=== PATIENT | male | born 1975 | race African-American/Black ===

== ENCOUNTER 2017-10-08 06:53 | Emergency (ER) | payer OTHER ==
[2017-10-08 07:06] VITALS: BMI 27.6
--- NOTE | 2017-10-08 07:54 | PDOC ---
History of Present Illness <Benoit Garcia - Last Filed: 10/08/17 10:34> - General History Source: Patient Exam Limitations: No Limitations - History of Present Illness Initial Comments: 10/08/17 08:21 The patient is a 42 year old male with a significant PMH of hypertension who presents to the emergency department complaining of lightheadedness, diffuse abdominal soreness, multiple episodes of emesis, and diarrhea since this morning. The patient states he began feeling a "knot in his stomach" that woke him up from sleep followed by multiple episodes of non-bilious, non-bloody emesis and diarrhea since. The patient states his abdomen is now diffusely sore from vomiting. The patient denies any sick contacts or recent travel. The patient denies any EtOH consumption. The patient denies chest pain, shortness of breath, and headache. Denies fever, chills, and constipation. Denies dysuria, frequency, urgency and hematuria. Allergies: NKA Past surgical history: None reported. Social history: Current smoker. No reported alcohol or drug use. <Radha Gutierres - Last Filed: 10/08/17 11:15> - General Chief Complaint: Vomiting/Diarrhea Stated Complaint: STOMACH PAIN Time Seen by Provider: 10/08/17 07:54 Past History - Past Medical History COPD: No - Suicide/Smoking/Psychosocial Hx Smoking History: Current every day smoker Number of Cigarettes Smoked Daily: 15 Information on smoking cessation initiated: No <JoseBenoit - Last Filed: 10/08/17 10:34> <Radha Gutierres - Last Filed: 10/08/17 11:15> - Past Medical History Allergies/Adverse Reactions: Allergies Allergy/AdvReac Type Severity Reaction Status Date / Time No Known Allergies Allergy Verified 10/08/17 07:06 Home Medications: Ambulatory Orders Ondansetron [Zofran Odt -] 4 mg SL TID #21 od.tablet 10/08/17 Review of Systems - Review of Systems Able to Perform ROS?: Yes Comments:: 10/08/17 08:24 ROS: A complete review of 10 out of 10 review of systems is taken and is negative apart from what is previously mentioned below and in the HPI. <Radha Gutierres - Last Filed: 10/08/17 11:15> *Physical Exam - Vital Signs Last Vital Signs Temp Pulse Resp BP Pulse Ox 98.8 F 78 18 108/56 99 10/08/17 07:02 10/08/17 07:02 10/08/17 07:02 10/08/17 07:02 10/08/17 07:02 <Benoit Garcia - Last Filed: 10/08/17 10:34> - Vital Signs Last Vital Signs Temp Pulse Resp BP Pulse Ox 98.8 F 78 18 108/56 99 10/08/17 07:02 10/08/17 07:02 10/08/17 07:02 10/08/17 07:02 10/08/17 07:02 - Physical Exam Comments: 10/08/17 08:24 Vitals: Triage vital signs reviewed General Appearance: No acute distress, well nourished, well developed Head: Atraumatic Eyes: Pupils equal reactive round, extraocular movement intact Ears: TM's normal bilaterally Nose: Nares patent bilaterally; no nasal congestion Throat: Posterior oropharynx without erythema, mucous membranes moist Neck: Supple; No nuchal rigidity Chest Wall: Nontender Cardiac: Regular rate and rhythm, no murmurs, no rubs, no gallops Lungs: Clear to auscultation bilateral, good air movement bilaterally Abdomen: Soft, nondistended, normal bowel sounds, nontender to palpation Genitourinary: Rectal: Exam deferred Extremities: Full range of motion to all extremities, no cyanosis, clubbing, or edema Skin: Warm and dry, no rashes or lesions, no rash, no petechiae Neuro: AOX3; Cranial Nerves 2-12 grossly intact, Strength intact to all extremities, Sensation intact to all extremities, gait normal Psych: Normal mood, normal affect <Radha Gutierres - Last Filed: 10/08/17 11:15> ED Treatment Course - LABORATORY CBC & Chemistry Diagram: 10/08/17 07:57 10/08/17 07:57 <Benoit Garcia - Last Filed: 10/08/17 10:34> - LABORATORY CBC & Chemistry Diagram: 10/08/17 07:57 10/08/17 07:57 - Medications Given in the ED: ED Medications Discontinued Medications Generic Name Dose Route Start Last Admin Trade Name Freq PRN Reason Stop Dose Admin Ondansetron HCl 4 mg 10/08/17 07:56 10/08/17 08:19 Zofran Injection IVPUSH 10/08/17 07:57 4 mg ONCE ONE Administration Sodium Chloride 2,000 ml 10/08/17 07:56 10/08/17 08:19 Normal Saline - IV 10/08/17 07:57 2,000 ml ONCE ONE Administration <Radha Gutierres - Last Filed: 10/08/17 11:15> Medical Decision Making - Medical Decision Making 10/08/17 10:34 Valuation status post IV fluids and Zofran patient feels much better now tolerating fluids by mouth. History and examination of nausea vomiting diarrhea and epigastric soreness consistent with viral GI illness We'll treat with course of Zofran fluids only today patient return to ED for any abdominal pain which becomes severe persistent constant he will follow-up with his primary care provider this week Findings, the need for follow-up and strict return instructions discussed with patient <Benoit Garcia - Last Filed: 10/08/17 10:34> - Medical Decision Making 10/08/17 08:35 The patient is a 42 year old male with a significant PMH of hypertension who presents to the emergency department complaining of lightheadedness, diffuse abdominal soreness, multiple episodes of emesis, and diarrhea since this morning. Plan Medications: Famotidine, Zofran, Normal Saline Labs: CBC, CMP, Lipase <Radha Gutierres - Last Filed: 10/08/17 11:15> *DC/Admit/Observation/Transfer - Discharge Dispostion Admit: No <Benoit Garcia - Last Filed: 10/08/17 10:34> <Radha Gutierres - Last Filed: 10/08/17 11:15> Diagnosis at time of Disposition: Nausea & vomiting Qualifiers: Vomiting type: unspecified Vomiting Intractability: non-intractable Qualified Code(s): R11.2 - Nausea with vomiting, unspecified - Discharge Dispostion Disposition: HOME Condition at time of disposition: Stable - Prescriptions Prescriptions: Ondansetron [Zofran Odt -] 4 mg SL TID #21 od.tablet - Patient Instructions Printed Discharge Instructions: Nausea and Vomiting-Adult Additional Instructions: Today take Zofran as prescribed. Drink plenty fluids such as Gatorade water soup. If no vomiting by tomorrow okay to proceed to a bland diet. Return to the emergency department for any severe worsening symptoms or for any concerns. - Post Discharge Activity Forms/Work/School Notes: Back to Work
[2017-10-08] MEDS ORDERED: SODIUM CHLORIDE 0.9% 1000 ML INFUS.BAG IV ONE (07:56)
[2017-10-08] MEDS ORDERED: ONDANSETRON 4 MG/2 ML VIAL IVPUSH ONE (07:56)
[2017-10-08] MEDS ORDERED: ONDANSETRON 4 MG/2 ML VIAL ONE (08:01)
[2017-10-08] MEDS ORDERED: FAMOTIDINE 20 MG/50 ML IVPB 20 MG/50 ML MG IVPB ONE (08:01)
[2017-10-08 08:37] LABS: BASO % 0.2 % (0-2.0); EOS % 0.8 % (0-4.5); HEMATOCRIT 50.5 % (35.4-49); HEMOGLOBIN 16.7 GM/dL (11.7-16.9); LYMPH % 2.4 % (8-40); MCH 30.9 pg (25.7-33.7); MEAN CELL VOLUME 93.6 fl (80-96); MEAN PLT VOLUME 8.2 fl (7.5-11.1); MONO % 2.9 % (3.8-10.2); NEUT % 93.7 % (42.8-82.8); PLATELET COUNT 187 K/MM3 (134-434); RDW 14.1 % (11.9-15.9); WHITE BLOOD COUNT 13.2 K/mm3 (4.0-10.0)
[2017-10-08] MEDS ORDERED: VASOPRESSIN 20 UNITS/ML VIAL IV ONE (09:02)
[2017-10-08 09:05] LABS: ALBUMIN 4.7 g/dl (3.4-5.0); ALK PHOS 90 U/L (45-117); ANION GAP 9 (8-16); BILIRUBIN,TOTAL 0.7 mg/dL (0.2-1.0); BLOOD UREA NITROGEN 17 mg/dL (7-18); CALCIUM 9.6 mg/dL (8.5-10.1); CHLORIDE 103 mmol/L (98-107); CO2 27 mmol/L (21-32); CREATININE 1.2 mg/dL (0.7-1.3); GLUCOSE,RANDOM 130 mg/dL (74-106); LIPASE 122 U/L (73-393); SGPT/ALT 58 U/L (12-78); SODIUM 139 mmol/L (136-145); TOT PROT 8.7 g/dl (6.4-8.2)
[2017-10-08 09:08] LABS: POTASSIUM 5.1 mmol/L (3.5-5.1); SGOT/AST 52 U/L (15-37)
[2017-10-08] MEDS ORDERED: FAMOTIDINE IV 20 MG/12 ML VIAL IVPUSH SCH (10:00)
[2017-10-08 11:06] VITALS: BP 133/74; PULSE 90; TEMP 98.7
== END 2017-10-08 11:12 | disposition home or self-care (01) ==
LOC: JER 06:53
PROC: 3E033GC Introduction of Other Therapeutic Substance into Peripheral Vein, Percutaneous Approach (ICD-10-PCS; principal; 2017-10-08)
DX: R11.2 Nausea with vomiting, unspecified (principal); I10 Essential (primary) hypertension; F17.210 Nicotine dependence, cigarettes, uncomplicated
CPT/HCPCS: 36415; 80053; 83690; 85025; 96374; 99283-25